=== PATIENT | male | born 1960 | race Caucasian/White ===

== ENCOUNTER 2017-11-16 12:01 | Emergency (ER) | payer SELFPAY ==
[~2017-11-16] VITALS: Ht 175.3 cm; Wt 97.3 kg
[2017-11-16 14:12] VITALS: BP 128/76
== END 2017-11-16 14:12 | disposition home or self-care (01) ==
LOC: EME 12:01
DX: S51.812A Laceration without foreign body of left forearm, initial encounter (principal); W01.118A Fall on same level from slipping, tripping and stumbling with subsequent striking against other sharp object, initial encounter; Z23 Encounter for immunization
CPT/HCPCS: 99281; 99284